=== PATIENT | female | born 1990 ===

== ENCOUNTER 2023-10-08 13:22 | Inpatient (IN) | payer OTHER ==
[~2023-10-08] VITALS: Ht 162.6 cm; Wt 97.5 kg
[2023-10-08 14:08] LABS: MEAN CELL VOLUME 83.1 fL (80.00-100.00); MEAN CORPUSCULAR HGB CONC 32.5 g/dl (32.0-36.0); PLATELET COUNT 177 K/uL (150-450); RED BLOOD COUNT 4.45 M/uL (4.00-6.00); RED CELL DISTRIBUTION WIDTH 14.9 % (11.5-14.5)
[2023-10-08 14:46] LABS: INR 0.95; PARTIAL THROMBOPLASTIN TIME 29.8 SECONDS (22.0-34.0)
[2023-10-10 06:28] LABS: HEMOGLOBIN 9.9 g/dL (12.0-15.00); MEAN CELL VOLUME 83.2 fL (80.00-100.00); MEAN CORPUSCULAR HEMOGLOBIN 27.4 pg (27.00-32.0); PLATELET COUNT 155 K/uL (150-450); RED CELL DISTRIBUTION WIDTH 14.5 % (11.5-14.5)
[2023-10-11 13:19] LABS: HEMATOCRIT 31.9 % (36.0-45.00); HEMOGLOBIN 10.5 g/dL (12.0-15.00); MEAN CELL VOLUME 82.3 fL (80.00-100.00); PLATELET COUNT 184 K/uL (150-450); RED BLOOD COUNT 3.88 M/uL (4.00-6.00); RED CELL DISTRIBUTION WIDTH 14.9 % (11.5-14.5)
== END 2023-10-12 14:36 | disposition home or self-care (01) | DRG 807 ==
LOC: LDR 10-09 06:52 → OB/GYN 10-09 13:21
PROVIDERS: Obstetrics & Gynecology; ADMIT Obstetrics & Gynecology; ATTEND Obstetrics & Gynecology
PROC: 10E0XZZ Delivery of Products of Conception, External Approach (ICD-10-PCS; principal; 2023-10-09)
PROC: 0UQMXZZ Repair Vulva, External Approach (ICD-10-PCS; 2023-10-09)
PROC: 4A1HXCZ Monitoring of Products of Conception, Cardiac Rate, External Approach (ICD-10-PCS; 2023-10-09)
DX: O71.82 Other specified trauma to perineum and vulva (principal); Z37.0 Single live birth; Z3A.39 39 weeks gestation of pregnancy; Z20.822 Contact with and (suspected) exposure to COVID-19

== ENCOUNTER 2025-03-03 11:03 | Outpatient (CLI) | payer OTHER | END 2025-03-03 12:11 | disposition home or self-care (01) | LOC: NST 11:03 | PROVIDERS: ATTEND Obstetrics & Gynecology Gynecology | DX: Z34.82 Encounter for supervision of other normal pregnancy, second trimester (principal) ==

== ENCOUNTER 2025-04-15 08:22 | Outpatient (CLI) | payer OTHER | END 2025-04-15 09:20 | disposition home or self-care (01) | LOC: NST 08:22 | PROVIDERS: ATTEND Obstetrics & Gynecology | DX: Z34.83 Encounter for supervision of other normal pregnancy, third trimester (principal) ==

== ENCOUNTER 2025-05-05 10:43 | Outpatient (CLI) | payer OTHER | END 2025-05-05 11:42 | disposition home or self-care (01) | LOC: NST 10:43 | PROVIDERS: ATTEND Obstetrics & Gynecology Maternal & Fetal Medicine | DX: Z34.83 Encounter for supervision of other normal pregnancy, third trimester (principal) ==

== ENCOUNTER 2025-05-21 10:30 | Inpatient (IN) | payer OTHER ==
[~2025-05-21] VITALS: Ht 162.6 cm; Wt 2.3 kg
[2025-05-21 12:29] LABS: BASO % 0.3 % (0.1-1.2); EOS # 0.10 (0.04-0.54); EOS % 1.3 % (0.7-7.0); LYMPH # 1.50 (1.18-3.74); LYMPH % 19.2 % (19.3-53.1); MEAN PLATELET VOLUME 11.70 fl (9.4-12.4); MONO # 0.62 (0.24-0.82); MONO % 7.9 % (4.7-12.5); NEUT # 5.51 (1.56-6.13); NEUT % 70.5 % (34.0-71.1); RED CELL DISTRIBUTION WIDTH 14.6 % (11.6-14.4)
[2025-05-21 12:47] LABS: ALT/SGPT 14.0 U/L (12-78); AST/SGOT 15.0 U/L (15-37); BILIRUBIN TOTAL 0.65 mg/dL (0.3-1.2); BUN CREA RATIO 16.0 (7.0-25.0); CREATININE SERUM 0.32 mg/dL (0.55-1.02); GFR 233.65; GLOBULINA 3.7 G/DL (2.4-3.5); GLUCOSE FASTING 73.0 mg/dL (65-100); OSMOLALITY SERUM 275.0 MOSM/KG (275-295)
[2025-05-21 12:53] LABS: INR < 0.93
[2025-05-26] MEDS ORDERED: PRENATAL + DHA1 EAC1 PO (06:43)
[2025-05-26] MEDS ORDERED: IRON325 MG PO (06:44)
[2025-05-26 06:45] VITALS: BP 118/76
[2025-05-26] MEDS ORDERED: OXYTOCIN 10 UNITS/ML VIAL ONE (07:06)
[2025-05-26] MEDS ORDERED: ERYTHROMYCIN BASE OPHT 1GM EACH TUBE OP ONE ×2 (07:06→07:14)
[2025-05-26] MEDS ORDERED: CITRIC ACID/SODIUM CITRATE 30 ML BLIST.PACK PO ONE (07:58)
[2025-05-26] MEDS ORDERED: CEFAZOLIN SODIUM 1,000 MG VIAL ONE (07:59)
[2025-05-26] MEDS ORDERED: MORPHINE SULFATE 4 MG/ML CARTRIDGE IV PRN (08:30)
[2025-05-26] MEDS ORDERED: RINGERS SOLUTION,LACTATED 1,000 ML IV SCH (08:30)
[2025-05-26] MEDS ORDERED: OXYTOCIN 1,000 ML IV ONE (08:30)
[2025-05-26] MEDS ORDERED: DOCUSATE SODIUM 100MG CAP PO SCH (09:00)
[2025-05-26] MEDS ORDERED: GABAPENTIN 300 MG CAPSULE PO SCH (09:00)
[2025-05-26] MEDS ORDERED: SIMETHICONE 125 MG CAPSULE PO SCH (09:00)
[2025-05-26] MEDS ORDERED: MORPHINE SULFATE 4 MG/ML VIAL IV ONE (11:05)
[2025-05-26] MEDS ORDERED: ONDANSETRON HCL 2 MG/ML VIAL IV SCH (12:00)
[2025-05-26] MEDS ORDERED: KETOROLAC TROMETHAMINE 30 MG VIAL IV SCH (12:00)
[2025-05-26] MEDS ORDERED: ACETAMINOPHEN 500 MG GEL..CAP PO SCH (12:00)
[2025-05-26] MEDS ORDERED: KETOROLAC TROMETHAMINE 30 MG VIAL ONE (12:09)
[2025-05-26 12:38] VITALS: BP 118/66
[2025-05-27 02:07] VITALS: BP 118/74
[2025-05-27 07:30] LABS: BASO % 0.2 % (0.1-1.2); EOS # 0.03 (0.04-0.54); EOS % 0.4 % (0.7-7.0); LYMPH # 1.21 (1.18-3.74); LYMPH % 14.3 % (19.3-53.1); MEAN PLATELET VOLUME 11.10 fl (9.4-12.4); MONO # 0.75 (0.24-0.82); MONO % 8.9 % (4.7-12.5); NEUT # 6.42 (1.56-6.13); NEUT % 75.7 % (34.0-71.1); RED CELL DISTRIBUTION WIDTH 14.4 % (11.6-14.4)
[2025-05-27] MEDS ORDERED: OxyCODONE HCL 5 MG TABLET (ROXICODONE) PO PRN (08:00)
[2025-05-27] MEDS ORDERED: KETOROLAC TROMETHAMINE 10 MG TABLET PO SCH (08:00)
[2025-05-27 08:25] VITALS: BP 110/71
[2025-05-27] MEDS ORDERED: IRON FUM,PS/FOLIC/BCOMP,C NO.9 1 CAP CAPSULE PO SCH (09:00)
[2025-05-27 16:32] VITALS: BP 118/67
[2025-05-28 01:38] VITALS: BP 121/75
[2025-05-28 08:42] VITALS: BP 105/68
== END 2025-05-28 12:57 | disposition home or self-care (01) | DRG 785 ==
LOC: O/R 05-26 06:00 → OB/GYN 05-26 10:30
PROVIDERS: Obstetrics & Gynecology; ADMIT Obstetrics & Gynecology Maternal & Fetal Medicine; ATTEND Obstetrics & Gynecology Maternal & Fetal Medicine
PROC: 0UB70ZZ Excision of Bilateral Fallopian Tubes, Open Approach (ICD-10-PCS; 2025-05-26)
PROC: 4A1HXCZ Monitoring of Products of Conception, Cardiac Rate, External Approach (ICD-10-PCS; 2025-05-26)
PROC: 10D00Z1 Extraction of Products of Conception, Low, Open Approach (ICD-10-PCS; principal; 2025-05-26 11:30)
DX: O32.1XX1 Maternal care for breech presentation, fetus 1 (principal); O30.043 Twin pregnancy, dichorionic/diamniotic, third trimester; Z3A.37 37 weeks gestation of pregnancy; Z37.2 Twins, both liveborn; Z30.2 Encounter for sterilization